=== PATIENT | female | born 1945 | race Caucasian/White ===

== ENCOUNTER 2023-04-10 07:00 | Day surgery (SDC) | payer OTHER ==
[2023-04-08 14:01] LABS: Absolute Lymphocytes (CBC) 1.3 K/uL (0.7-4.9); Hematocrit 40.5 % (36.0-45.0); Lymphocytes % 17.5 % (15.3-44.8); MCV 98.7 fL (80-100); MPV 8.3 fL (7.6-11.3); Platelets 257 thou/uL (152-406)
[2023-04-10] MEDS: Ringers Lactate 1,000 ML IV ONE ×2 (07:35→08:35)
[2023-04-10] MEDS ORDERED: CEFAZOLIN SODIUM 1 GM/VIAL ONE (07:44)
[2023-04-10] MEDS ORDERED: propofoL 200 MG/20 ML VIAL IV ONE (07:55)
[2023-04-10] MEDS ORDERED: FENTANYL CITR 100 MCG/2 ML ONE (07:55)
[2023-04-10] MEDS ORDERED: LIDOCAINE 2% MPF 5 ML VIAL ONE (07:56)
[2023-04-10] MEDS ORDERED: BUPIVACAINE 0.25% PF 30 ML VIAL ONE (08:04)
[2023-04-10] MEDS ORDERED: EPHEDRINE SULF 50 MG/ML VIAL ONE (09:00)
[2023-04-10] MEDS ORDERED: ONDANSETRON 4 MG/2 ML VIAL ONE (09:08)
[2023-04-10] MEDS ORDERED: dexAMETHasone 4 MG/ML VIAL ONE (09:09)
[2023-04-10] MEDS ORDERED: LIDOCAINE HCL/EPINEPHRINE 20 ML MDV ONE (09:22)
--- NOTE | 2023-04-10 09:27 | P.OP ---
Preoperative diagnosis: Posterior Scalp Cyst, Lower Back Central Cyst Postoperative diagnosis: Posterior Scalp Cyst, Lower Back Central Cyst Primary procedure: Excision of Posterior Scalp Cyst, Lower Back Central Cyst Anesthesia: GETA + Local Estimated blood loss: <5cc Specimen: Posterior Scalp Cyst, Lower Back Central Cyst Findings: 3cm scalp cyst, 1cm back cyst Complications: None Transferred to: Recovery Room Condition: Good
[2023-04-10 11:06] VITALS: BP 131/73; TEMP 96.2; O2SAT 100
--- NOTE | 2023-04-10 11:32 | OP ---
Date of Procedure: 04/10/2023 Surgeon: Zain Villanueva MD, Preoperative Diagnosis: Posterior scalp cyst and lower back central cyst. Postoperative Diagnosis: Posterior scalp cyst and lower back central cyst. Procedure Performed: Excision of posterior scalp cyst and central lower back cyst. Anesthesia: General endotracheal plus local with 0.25% Marcaine and 1% lidocaine with epinephrine. Estimated Blood Loss: Less than 5 cc. Specimens: 1.Posterior scalp cyst approximately 2 cm in size, sebaceous cyst. 2.1 cm lower back simple cyst. 3.Culture sent from lower back cyst. Findings: 1.Approximately 3 cm scalp cyst, which is consistent with a sebaceous cyst. 2.1 cm lower back cyst. Complications: None. Disposition: The patient transferred to recovery room in good condition. Procedure In Detail: After informed consent was obtained, patient was brought to the operating room, prepped and draped in usual sterile fashion. After adequate anesthesia achieved, I anesthetized the area of the lower back with 0.25% Marcaine, made an elliptical incision around a punctate area of fu llness consistent with a draining cyst. I dissected down using electrocautery circumferentially arou nd the cystic structure. Culture sent both aerobic and anaerobic speciation at this time. I then re moved the cyst and sent off for pathologic examination. I irrigated the lower back cyst area at this time. Hemostasis was easily achieved with electrocautery. The area was then closed with 3-0 interr upted nylon sutures in an interrupted fashion with good approximation of the tissues. A sterile dres sing was placed over top. I then turned my attention to the scalp area. The patient requested we no t trim her hair in this area. I suggested we use gel to push it out of the way to clear our region. I then used 1% lidocaine with epinephrine . At this point, I used hemostats to remove a c ystic structure consistent with a sebaceous cyst capsule and sent off in its entirety. The area was copiously irrigated. Hemostasis was achieved with electrocautery. The area was irrigated once again and closed with 3-0 Prolene sutures in an interrupted fashion with good approximation of tissues. _ . CK/MODL Voice ID: [id number] Report ID: [id number]
== END 2023-04-10 10:55 | disposition home or self-care (01) ==
LOC: OR 07:00
PROVIDERS: ATTEND Surgery
PROC: 0JB00ZZ Excision of Scalp Subcutaneous Tissue and Fascia, Open Approach (ICD-10-PCS; principal; 2023-04-10 08:30)
PROC: 0JB70ZZ Excision of Back Subcutaneous Tissue and Fascia, Open Approach (ICD-10-PCS; 2023-04-10 08:30)
DX: L72.0 Epidermal cyst (principal); L72.11 Pilar cyst; I10 Essential (primary) hypertension; Z85.3 Personal history of malignant neoplasm of breast
CPT/HCPCS: 87070; 85025; 36415; 87205; 88304; 87075; 11422; 11401; J2704; J1100; J2001; J3010; J2405; J7120; J0690

== ENCOUNTER 2024-04-29 07:30 | Day surgery (SDC) | payer OTHER ==
[2024-04-26 15:29] LABS: Absolute Basophils 0.1 K/uL (0-0.5); Absolute Eosinophils 0.1 K/uL (0-0.5); Absolute Lymphocytes (CBC) 1.5 K/uL (0.7-4.9); Absolute Monocytes 0.5 K/uL (0.1-1.3); Absolute Neutrophil 4.6 K/uL (1.8-8.0); Basophils % 0.8 % (0-1.3); Eosinophils % 1.3 % (0-4.4); Hematocrit 40.5 % (36.0-45.0); Hemoglobin 13.4 g/dL (12.0-15.0); Lymphocytes % 22.1 % (15.3-44.8); MCH 32.9 pg (27.0-35.0); MCHC 33.1 g/dL (32.0-36.0); MCV 99.5 fL (80-100); MPV 7.7 fL (7.6-11.3); Monocytes % 7.5 % (3.3-12.3); Neutrophils % 68.3 % (41.7-73.7); Platelets 250 thou/uL (152-406); RBC Red Blood Cell Count 4.07 M/uL (3.86-4.86)
[2024-04-26 15:38] LABS: Anion Gap 10.2 mEq/L (5.0-15.0); Potassium 4.2 mEq/L (3.5-5.1)
[2024-04-29] MEDS ORDERED: propofoL 200 MG/20 ML VIAL IV ONE (07:33)
[2024-04-29] MEDS ORDERED: LIDOCAINE 1% MPF 5 ML VIAL ONE (07:33)
[2024-04-29] MEDS: NA CHLORIDE 0.9% 1,000 ML ONE (08:00)
[2024-04-29 10:27] VITALS: BP 143/68; TEMP 97.8; O2SAT 99
== END 2024-04-29 10:45 | disposition home or self-care (01) ==
LOC: OR 07:30
PROVIDERS: ATTEND Surgery
PROC: 0DB78ZX Excision of Stomach, Pylorus, Via Natural or Artificial Opening Endoscopic, Diagnostic (ICD-10-PCS; 2024-04-29)
PROC: 0DB68ZX Excision of Stomach, Via Natural or Artificial Opening Endoscopic, Diagnostic (ICD-10-PCS; 2024-04-29)
PROC: 0DB28ZX Excision of Middle Esophagus, Via Natural or Artificial Opening Endoscopic, Diagnostic (ICD-10-PCS; 2024-04-29)
PROC: 0DB38ZX Excision of Lower Esophagus, Via Natural or Artificial Opening Endoscopic, Diagnostic (ICD-10-PCS; 2024-04-29)
PROC: 0DBK8ZX Excision of Ascending Colon, Via Natural or Artificial Opening Endoscopic, Diagnostic (ICD-10-PCS; principal; 2024-04-29 08:45)
PROC: 0DB98ZX Excision of Duodenum, Via Natural or Artificial Opening Endoscopic, Diagnostic (ICD-10-PCS; 2024-04-29 08:45)
DX: Z12.11 Encounter for screening for malignant neoplasm of colon (principal); K21.9 Gastro-esophageal reflux disease without esophagitis; K57.30 Diverticulosis of large intestine without perforation or abscess without bleeding; K64.8 Other hemorrhoids; K64.4 Residual hemorrhoidal skin tags; K63.5 Polyp of colon; K21.00 Gastro-esophageal reflux disease with esophagitis, without bleeding; R10.13 Epigastric pain; R11.0 Nausea; K44.9 Diaphragmatic hernia without obstruction or gangrene; K25.4 Chronic or unspecified gastric ulcer with hemorrhage; K29.51 Unspecified chronic gastritis with bleeding
CPT/HCPCS: 85025; 80048; 36415; 88305; 45380; 43239; J2704; J2003; J7030; 88312